=== PATIENT | male | born 1995 | race Caucasian/White ===

== ENCOUNTER 2017-08-25 14:55 | Emergency (ER) | payer OTHER ==
[~2017-08-25] VITALS: Ht 172.7 cm; Wt 97.0 kg
[2017-08-25] MEDS ORDERED: ONDANSETRON 4MG ODT PO STA (15:55)
[2017-08-25] MEDS ORDERED: TRAMADOL 50MG TABLET PO ONE (16:00)
[2017-08-25 16:28] LABS: BASOPHILS % 0.6 % (0.0-2.0); EOSINOPHILS % 0.3 % (0.0-5.0); HEMATOCRIT. 41.9 % (42.0-52.0); HEMOGLOBIN. 14.1 g/dL (14.0-18.0); LYMPHOCYTES % 21.1 % (20.0-50.0); MEAN CORPUSCULAR HEMOGLOBIN 30.1 pg (28.0-32.0); MEAN CORPUSCULAR VOLUME 89.3 fL (80.0-94.0); MEAN PLATELET VOLUME 9.9 fl (7.4-10.4); MONOCYTES % 7.8 % (2.0-8.0); NEUTROPHILS % 70.2 % (40.0-76.0); PLATELET 225 x1000/uL (130-400); RED BLOOD CELL COUNT 4.69 mill/uL (4.7-6.1); RED CELL DISTRIBUTION WIDTH 14.8 % (11.6-14.6)
[2017-08-25 16:30] LABS: CHLORIDE 105 mEq/L (98-107)
[2017-08-25 16:31] LABS: PROTHROMBIN TIME 10.8 sec (9.4-11.6)
[2017-08-25 16:35] LABS: CARBON DIOXIDE 29 mEq/L (21-32)
[2017-08-25 18:14] VITALS: BP 138/80
== END 2017-08-25 18:17 | disposition home or self-care (01) ==
LOC: ER 15:05
DX: R10.31 Right lower quadrant pain (principal); R30.0 Dysuria; R31.9 Hematuria, unspecified; F11.10 Opioid abuse, uncomplicated
CPT/HCPCS: 36415; 74176; 80053; 83690; 85025; 85610; 99285; Q0162